=== PATIENT | female | born 1980 | race Two or more races ===

== ENCOUNTER 2023-02-27 19:41 | Emergency (ER) | payer OTHER ==
[2023-02-27 19:49] VITALS: BP 134/87; PULSE 96; RESP 18; TEMP 98.7; BMI 31.1
[2023-02-27] MEDS ORDERED: LIDOCAINE 5% TOPICAL PATCH TP ONE (20:44)
[2023-02-27] MEDS ORDERED: ACETAMINOPHEN 500 MG TABLET (FP) PO ONE (20:44)
[2023-02-27] MEDS ORDERED: KETOROLAC TROMETHAMINE 30 MG/1 ML VIAL IM ONE (20:44)
[2023-02-27] MEDS ORDERED: CYCLOBENZAPRINE HCL 10 MG TABLET (FP) PO ONE (20:44)
[2023-02-27] MEDS ORDERED: LIDOCAINE 5% TOPICAL PATCH ONE (20:46)
[2023-02-27] MEDS ORDERED: ACETAMINOPHEN 500 MG TABLET (FP) ONE (20:46)
[2023-02-27] MEDS ORDERED: KETOROLAC TROMETHAMINE 30 MG/1 ML VIAL ONE (20:46)
[2023-02-27] MEDS ORDERED: CYCLOBENZAPRINE HCL 10 MG TABLET (FP) ONE (20:46)
[2023-02-27] MEDS ORDERED: LIDOCAINE PATCH REMOVAL MC SCH (22:00)
== END 2023-02-27 21:46 | disposition home or self-care (01) ==
LOC: JERFT 19:41
PROC: 3E0233Z Introduction of Anti-inflammatory into Muscle, Percutaneous Approach (ICD-10-PCS; principal; 2023-02-27)
DX: M54.2 Cervicalgia (principal); M54.6 Pain in thoracic spine; M54.50 Low back pain, unspecified; V43.52XA Car driver injured in collision with other type car in traffic accident, initial encounter
CPT/HCPCS: 72100-TC-FY; 99284-25